=== PATIENT | female | born 1980 | race Caucasian/White ===

== ENCOUNTER 2018-04-30 16:41 | Emergency (ER) | payer BC ==
[2018-04-30 17:53] VITALS: BP 140/60
--- NOTE | 2018-04-30 18:08 | RAD ---
HISTORY: Fall while running on a trial in a woman who is 25 weeks and 5 days according to last menstrual period COMPARISONS: None TECHNIQUE: Multiple transverse and longitudinal ultrasound images were obtained of the pelvis using grayscale, color flow, spectral and M-mode sonographic imaging. FINDINGS: Multiple transabdominal real time images of the gravid uterus were obtained. This exam demonstrates a single intrauterine in the Cephalic presentation. heart and limb motion were noted. The heart rate was 143 beats per minute. The placenta was located Posterior. There is no placenta previa. The amniotic fluid volume appeared to be within normal limits. Biparietal diameter (cm) 6.2 which corresponds to a gestational age of 25 weeks and 2 days. Head circumference (cm) 23.5 which corresponds to a gestational age of 25 weeks and 4 days. abdominal circumference(cm) 21.2 which corresponds to a gestational age of 25 weeks and 5 days. femur length (cm) 5.0 which corresponds to a gestational age of 27 weeks and 0 days. The composite estimated gestational age was 26 weeks and 0 days. The estimated weight at this time is 886 grams +/- 130 grams. IMPRESSION: Normal-appearing single intrauterine gestation with composite growth parameters yielding an average gestational age of 26 weeks.
--- NOTE | 2018-04-30 18:58 | ED ---
Evan Jaffe Angela, scribed for Ho Hogan MD on 04/30/18 at 1705 . - HPI Summary HPI Summary: This pt is a 37 y/o female, currently 25 weeks and 5 days , presenting to [facility] for an evaluation after she fell on her abdomen. Pt reports she was running on trails when she tripped and fell. She states she impacted the right side of her abdomen at around 14:00 today. Denies vaginal discharge, vaginal bleeding, leaking of fluid, abd pain, contractions, swelling in LE. Pt denies any problems or issues with her so far. She is due on August 08. Her OBGYN is Michelle Krause in [place]. LMP: November 01, 2017. Denies any PMHx. heart tone is 150. - History of Current Complaint Chief Complaint: EDOBProblems Stated Complaint: 26 WKS PREG/FALL Hx Obtained From: Patient Chief Complaint: Other: - no complaints Onset/Duration: Started Hours Ago, Traumatic Timing: Lasting Hours Current Severity: None Pain Intensity: 0 - denies pain Character: None Aggravating Factors: Nothing Alleviating Factors: Nothing Associated Signs and Symptoms: Negative: Fever, Nausea, Vaginal Bleeding or Discharge, Other: - LE swelling, contractions - Allergies/Home Medications Allergies/Adverse Reactions: Allergies Allergy/AdvReac Type Severity Reaction Status Date / Time No Known Allergies Allergy Verified 04/30/18 18:33 PMH/Surg Hx/FS Hx/Imm Hx Endocrine/Hematology History: Denies: Hx Diabetes Cardiovascular History: Denies: Hx Hypertension Infectious Disease History: No Infectious Disease History: Denies: Traveled Outside the [place] in Last 30 Days - Family History Known Family History: Negative: Hypertension, Diabetes - Social History Alcohol Use: None Substance Use Type: Reports: None Smoking Status (MU): Never Smoked Tobacco Review of Systems Negative: Fever, Chills Eyes: Negative ENT: Negative Negative: Abdominal Pain Positive: no symptoms reported. Negative: other - vaginal discharge or bleeding Negative: Edema - in LE All Other Systems Reviewed And Are Negative: Yes Physical Exam - Summary Physical Exam Summary: Appearance: Well appearing, no pain distress Skin: warm, dry, reflects adequate perfusion Head/face: normal Eyes: EOMI, NADINE ENT: normal Neck: supple, non-tender Respiratory: CTA, breath sounds present Cardiovascular: RRR, pulses symmetrical Abdomen: non-tender, soft. Gravid just below the xiphoid. Baby is palpable on the right side of the abdomen. No abrasions or contusions. Bowel: present Musculoskeletal: normal, strength/ROM intact. No LE edema. Neuro: normal, sensory motor intact, A&Ox3 - Physical Exam Triage Information Reviewed: Yes Vital Signs On Initial Exam: Initial Vitals Temp Pulse Resp BP Pulse Ox 98.1 F 70 16 103/59 98 04/30/18 16:47 04/30/18 16:47 04/30/18 16:47 04/30/18 16:47 04/30/18 16:47 Vital Signs Reviewed: Yes Diagnostics - Vital Signs Vital Signs Temp Pulse Resp BP Pulse Ox 04/30/18 16:47 98.1 F 70 16 103/59 98 - Laboratory Lab Statement: Any lab studies that have been ordered have been reviewed, and results considered in the medical decision making process. - Ultrasound No standard instances Ultrasound Interpretation: Positive (See Comments) - US IMPRESSION: Normal -appearing single intrauterine gestation with composite growth parameters yielding an average gestational age of [address] Hogan has reviewed this radiology report. Ultrasound Interpretation Completed By: Radiologist Course/Dx - Course Course Of Treatment: Patient is very comfortable. There is no visible ha on the abdomen. Formal ultrasound was performed bedside to rule out abruption. This was negative. Discussed the case with the SALES FACILITATOR who would like the patient sent to OB for further evaluation and treatment. - Differential Diagnosis/HQI/PQRI: Other: - Placental abruption, abdominal contusion, labor - Diagnoses Provider Diagnoses: Trauma during - Provider Notifications Discussed Care Of Patient With: Mayra Villanueva Time Discussed With Above Provider: 17:06 Instructed by Provider To: Other - I discussed pt care with Dr. Villanueva, OB, who will take the pt to OB right now. Discharge - Sign-Out/Discharge Documenting (check all that apply): Discharge/Admit/Transfer - Transfer - Discharge Plan Condition: Stable Disposition: TRANSFER TO OB ([facility]) Patient Education Materials: at 23 to 26 Weeks (ED) Referrals: Cheko Crawford, [employer] INST[employer]ER [Primary Care Provider] - Additional Instructions: Go now to labor and delivery for further monitoring/testing - Billing Disposition and Condition Condition: STABLE Disposition: Transfer to OB ([facility]) The documentation as recorded by the Evan ennis Angela accurately reflects the service I personally performed and the decisions made by Samira warner Kirk, MD.
== END 2018-04-30 17:51 | disposition other institution (70) ==
LOC: ED 16:41
DX: O9A.212 Injury, poisoning and certain other consequences of external causes complicating pregnancy, second trimester (principal); Z3A.25 25 weeks gestation of pregnancy; Z91.81 History of falling
CPT/HCPCS: 76815; 99282